=== PATIENT | male | born 1995 | race African-American/Black ===

== ENCOUNTER 2021-05-21 00:30 | Emergency (ER) | payer OTHER ==
[~2021-05-21] VITALS: Ht 185.4 cm; Wt 68.0 kg
[2021-05-21 00:43] VITALS: BP 117/84
[2021-05-21] MEDS ORDERED: SSD CREAM 1% 5050 GM TOP (00:47)
== END 2021-05-21 02:36 | disposition home or self-care (01) ==
LOC: ER 00:30
DX: T22.212A Burn of second degree of left forearm, initial encounter (principal); X08.8XXA Exposure to other specified smoke, fire and flames, initial encounter; Y93.89 Activity, other specified; Y92.89 Other specified places as the place of occurrence of the external cause; Y99.9 Unspecified external cause status

== ENCOUNTER 2021-05-25 08:33 | Emergency (ER) | payer OTHER ==
[~2021-05-25] VITALS: Ht 185.4 cm; Wt 71.7 kg
[~2021-05-25 08:33] MED LIST: SSD CREAM 1% 5050 GM TOP
[2021-05-25 08:34] VITALS: BP 132/60
[2021-05-25] MEDS ORDERED: VISTARIL 25 MG25 M1 PO (08:41)
== END 2021-05-25 09:25 | disposition home or self-care (01) ==
LOC: ER 08:33
DX: Z48.00 Encounter for change or removal of nonsurgical wound dressing (principal)